=== PATIENT | female | born 1975 | race Caucasian/White ===

== ENCOUNTER 2016-02-18 11:30 | Day surgery (SDC) | payer OTHER ==
[~2016-02-18] VITALS: Ht 160 cm; Wt 89.5 kg
[~2016-02-18 11:30] MED LIST: CLARISPRAY9.9 ML BOTH NARES; DEXILANT60 MG PO; EFFEXOR XR75 MG PO; LOFIBRA,TRIGLI160 MG PO
[2016-02-18 12:02] VITALS: BP 112/67
[2016-02-18] MEDS ORDERED: PERCOCET 5/31 TABLET PO (15:06)
[2016-02-18] MEDS ORDERED: MOTRIN800 MG PO (15:06)
[2016-02-18 16:30] VITALS: BP 111/65
[2016-02-18 17:06] VITALS: BP 121/67
== END 2016-02-18 17:25 | disposition home or self-care (01) ==
LOC: SDC 11:30
PROC: 0UDB8ZX Extraction of Endometrium, Via Natural or Artificial Opening Endoscopic, Diagnostic (ICD-10-PCS; principal; 2016-02-18)
PROC: 0U574ZZ Destruction of Bilateral Fallopian Tubes, Percutaneous Endoscopic Approach (ICD-10-PCS; principal; 2016-02-18)
PROC: 0UB98ZZ Excision of Uterus, Via Natural or Artificial Opening Endoscopic (ICD-10-PCS; principal; 2016-02-18)
DX: Z30.2 Encounter for sterilization (principal); N84.0 Polyp of corpus uteri; K21.9 Gastro-esophageal reflux disease without esophagitis; E78.1 Pure hyperglyceridemia; E66.9 Obesity, unspecified; Z68.36 Body mass index [BMI] 36.0-36.9, adult
CPT/HCPCS: 88305; J0131; J0330; J1100; J1170; J1885; J2250; J2405; J2710; J2765; J3010; S0020